=== PATIENT | female | born 1960 | race Two or more races ===

== ENCOUNTER 2018-05-31 21:48 | Emergency (ER) | payer OTHER ==
[~2018-05-31] VITALS: Ht 154.9 cm; Wt 76.2 kg
[~2018-05-31 21:48] MED LIST: CA/D1TAB7 PO; CIPR-263 PO; CYAN1TAB43 PO; OMEG300C3 PO
[2018-05-31 22:19] VITALS: BP 117/66
[2018-05-31] MEDS ORDERED: MAG HYDROX/AL HYDROX/SIMETH 30 ML UDC ONE (22:38)
[2018-05-31] MEDS ORDERED: LIDOCAINE VISCOUS 2% UD 15 ML UDC ONE (22:38)
[2018-05-31] MEDS ORDERED: MAG HYDROX/AL HYDROX/SIMETH 30 ML UDC PO ONE (23:00)
[2018-05-31] MEDS ORDERED: LIDOCAINE VISCOUS 2% UD 15 ML UDC MM ONE (23:00)
== END 2018-05-31 23:25 | disposition home or self-care (01) ==
LOC: ER 21:49
DX: K21.9 Gastro-esophageal reflux disease without esophagitis (principal); I11.0 Hypertensive heart disease with heart failure; I50.9 Heart failure, unspecified; Z90.710 Acquired absence of both cervix and uterus
CPT/HCPCS: 93005; 99283; A4606; Z7610